=== PATIENT | male | born 1960 | race Caucasian/White ===

== ENCOUNTER 2020-11-04 06:25 | Day surgery (SDC) | payer BC ==
[~2020-11-04] VITALS: Ht 188 cm; Wt 104.5 kg
[~2020-11-04 06:25] MED LIST: ADVIL200 M1 PO; ALEVE220 MG PO; ASPIR 8181 MG PO; CENTRUM SILVER1 EAC3 PO; FENOFIBRATE40 MG PO; FLOMAX0.4 MG PO; K-TAB ER20 MEQ PO; LEVOTHYROXINE75 MC1 PO; MAG DELAY64 M1 PO; MELATONIN1 MG PO; METOPROLOL SUCC50 MG PO; NORCO 5-325 TA1 EACH PO; OSTEO BI-FLEX1 EAC4 PO; VITAMIN D31250 MC1 PO
[2020-11-04] MEDS ORDERED: HYDROCODON-ACE1 EA10 PO (08:19)
[2020-11-04] MEDS ORDERED: DICLOFENAC SODI75 MG PO (08:19)
--- NOTE | 2020-11-04 08:27 | NUR ---
11/04/20 0827 Mona Pires 0817 PT TO PACU AWAKE BUT DROWSY DENIES PAIN.
--- NOTE | 2020-11-04 09:23 | OR ---
[facility] [address], [place] [address] Signed DATE OF OPERATION: 11/04/2020 SURGEON: Catilyn Pires MD PREOPERATIVE DIAGNOSES: 1. Medial meniscus tear, right knee. 2. Degenerative joint disease, left knee. POSTOPERATIVE DIAGNOSES: 1. Medial meniscus tear, right knee. 2. Degenerative joint disease, left knee. PROCEDURE PERFORMED: 1. Right knee arthroscopy with partial medial meniscectomy. 2. Injection of Kenalog, left knee. BASS MECHANISM MAKER: None. ANESTHESIA: General. BLOOD LOSS: Minimal. BRIEF HISTORY: Ellis is a 60-year-old gentleman with pain in his knees and locking in the right. MRI was consistent with a large posteromedial meniscus tear. Risks and benefits of operative treatment were discussed with him and he elected to proceed. DESCRIPTION OF PROCEDURE: Once consent was obtained, he was taken to the operating room. After adequate anesthesia, he was placed on the operating room table. All downside pressure points were well padded. The left leg was placed in a leg medina and abducted external rotated position. The right was placed in well-padded leg medina proximally with no tourniquet. The left knee was sterilely prepped with alcohol and injected with 4 mL 0.25% Marcaine, 2 mL Kenalog 40. The right knee was then injected in all three portal sites using 0.25% Marcaine with epinephrine under an alcohol prep. The leg was then prepped and draped in a standard sterile fashion. Standard inferolateral and superolateral portals were made and the scope was introduced to the knee. Electronically Signed By: CAITLYN PIRES MD 11/04/20 0923 PATIENT NAME: BRUCE AKERS OPERATIVE REPORT DATE OF : 60 REPORT #: [id number] PHYSICIAN: CAITLYN PIRES MD PCP: AUTUMN MCWILLIAMS MD REPORT IS CONFIDENTIAL AND NOT TO BE RELEASED WITHOUT AUTHORIZATION [facility] [address], [place] [address] Signed ARTHROSCOPIC FINDINGS: The patellofemoral joint was intact. The medial and lateral gutters showed moderate synovitis throughout. ACL and PCL were intact. Lateral compartment was intact. Medial compartment showed very minimal arthritis with a large degenerative posteromedial meniscus tear. Standard inferomedial portal was made after localization using a spinal needle. Using the straight and curved biters, we were able to trim the meniscus back to a stable rim, this was then smoothed and feathered using the shaver. We evacuated all meniscal debris that we could find. The scope was then withdrawn. Portals closed with 3-0 nylon and the knee was injected with 60 mg Toradol. The wounds were dressed with Adaptic, ABD, and Eyad wrap. He tolerated the procedure well. All sponge, needle, and instrument counts were correct. Caitlyn Pires MD BA/JENNY /[id number] Copies: ~ Electronically Signed By: CAITLYN PIRES MD 11/04/20 0923 PATIENT NAME: BRUCE AKERS OPERATIVE REPORT DATE OF : 60 REPORT #: [id number] PHYSICIAN: CAITLYN PIRES MD PCP: AUTUMN MCWILLIAMS MD REPORT IS CONFIDENTIAL AND NOT TO BE RELEASED WITHOUT AUTHORIZATION
--- NOTE | 2020-11-04 09:48 | NUR ---
LE 0830: PT ARRIVES TO UNIT FROM PACU VIA STRETCHER. BEDSIDE REPORT RECEIVED AND CARE ASSUMED BY THIS AUTHOR. VSS, CMS WNL. PT DENIES PAIN. KRYSTAL PO WELL. SCDS AND ICE IN PLACE. DRESSING C/D/I. NO NEEDS VOICED. ATTENTIVE AT THE BEDSIDE LE 0945: PT REMAINS COMFORTABLE. VSS, CMS WNL. DANGLES AT EDGE OF BED AND DENIES DIZZINESS AND SOB. UP TO BR WITH STANDBY ASSIST FROM THIS RN. STEADY GAIT. SUCCESSFUL POST OP VOID. D/C CRITERIA MET AND PT DESIRES TO GO HOME. PREPARES FOR D/S
== END 2020-11-04 10:15 | disposition home or self-care (01) ==
LOC: DS 06:25
PROVIDERS: ATTEND Specialist
PROC: 3E0U33Z Introduction of Anti-inflammatory into Joints, Percutaneous Approach (ICD-10-PCS; 2020-11-04)
PROC: 0SBC4ZZ Excision of Right Knee Joint, Percutaneous Endoscopic Approach (ICD-10-PCS; principal; 2020-11-04 08:30)
DX: M23.231 Derangement of other medial meniscus due to old tear or injury, right knee (principal); M17.0 Bilateral primary osteoarthritis of knee; M94.261 Chondromalacia, right knee; M65.9 Synovitis and tenosynovitis, unspecified; E07.9 Disorder of thyroid, unspecified; X58.XXXA Exposure to other specified factors, initial encounter; Z79.82 Long term (current) use of aspirin; Z86.73 Personal history of transient ischemic attack (TIA), and cerebral infarction without residual deficits
CPT/HCPCS: J0131; J0690; J1100; J1885; J2001; J2405; J2704; J3010; J3301